=== PATIENT | male | born 1935 | race Caucasian/White ===

== ENCOUNTER 2017-05-09 17:38 | Emergency (ER) | payer MEDICARE, OTHER ==
[~2017-05-09] VITALS: Ht 175.3 cm; Wt 130.1 kg
[2017-05-09] MEDS ORDERED: TYLENOL325 MG PO (19:07)
[2017-05-09] MEDS ORDERED: PROVENTIL HFA6.7 GM INH (19:08)
[2017-05-09] MEDS ORDERED: PROVENTIL2.5 MG/3 M INH (19:09)
[2017-05-09] MEDS ORDERED: SYMBICORT 80-46.9 GM INH (19:10)
[2017-05-09] MEDS ORDERED: LASIX80 MG PO (19:10)
[2017-05-09] MEDS ORDERED: NEURONTIN300 MG PO (19:10)
[2017-05-09] MEDS ORDERED: NOVOLOG FL100 UNIT/1 SUBCUT (19:12)
[2017-05-09] MEDS ORDERED: ZESTRIL10 MG PO (19:13)
[2017-05-09] MEDS ORDERED: LANTUS100 UNIT/1 SUBCUT (19:13)
[2017-05-09] MEDS ORDERED: GLUCOPHAGE1000 MG PO (19:14)
[2017-05-09] MEDS ORDERED: LOPRESSOR25 MG PO (19:15)
[2017-05-09] MEDS ORDERED: XARELTO10 MG PO (19:15)
[2017-05-09] MEDS ORDERED: ZOCOR40 MG PO (19:16)
[2017-05-09] MEDS ORDERED: SPIRIVA18 MCG INH (19:16)
[2017-05-09] MEDS ORDERED: FLOMAX0.4 MG PO (19:16)
== END 2017-05-09 19:30 | disposition short-term general hospital (02) ==
LOC: ER 17:38
DX: J44.1 Chronic obstructive pulmonary disease with (acute) exacerbation (principal); R07.9 Chest pain, unspecified; E11.9 Type 2 diabetes mellitus without complications; I50.9 Heart failure, unspecified; G47.30 Sleep apnea, unspecified; Z87.891 Personal history of nicotine dependence; E66.01 Morbid (severe) obesity due to excess calories; Z79.4 Long term (current) use of insulin; Z79.84 Long term (current) use of oral hypoglycemic drugs; Z79.899 Other long term (current) drug therapy